=== PATIENT | female | born 1970 | race Caucasian/White ===

== ENCOUNTER 2018-08-14 12:04 | Emergency (ER) | payer BC ==
[2018-08-14] MEDS ORDERED: Sodium Chloride 0.9% 10 ML Syringe FLUSH PRN (12:57)
--- NOTE | 2018-08-14 13:11 | EDM.PDOC ---
<Cynthia Selby - Last Filed: 08/14/18 13:52> ED HPI GENERAL MEDICAL PROBLEM - General Chief Complaint: Chest Pain Stated Complaint: CHEST PAIN/L ARM PAIN Time Seen by Provider: 08/14/18 12:40 Source of Information: Reports: Patient, RN Notes Reviewed History Limitations: Reports: No Limitations - History of Present Illness INITIAL COMMENTS - FREE TEXT/NARRATIVE: Jahaira is a 48 year old female who presents to the ED for evaluation of some chest discomfort that occurred about two hours ago. Patient states that she has had some long standing left scapula and left trapezius pain which she has treated with massage therapy. 3 days ago, the pain worsened and radiated to her left TMJ. She thought she might have some dental pain, but it subsided on its own. Today while sitting at work, she developed some substernal/left chest discomfort. She describes that it felt like her heart was beating harder and faster. She said this was "weird". It lasted about two hours and subsided. She denied that exertion made this sensation worse. She denies any pain. She has no shortness or breath or diaphoresis.She currently does not have this chest discomfort. She also complains of some lightheadedness that occurs with walking. Patient has hypothyroidism that is treated with Levothyroxine 75 mcg. This was last checked by Dr. Fuchs in May and is stable. 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 She had a full hematology workup that included bone marrow biopsy about [address] Lewis. Blood counts are monitored periodically with Dr. Fuchs. Patient also had Novasure procedure about 6 years ago, and has not had a menstrual period since that time. She does not believe she has gone through menopause yet. Left Chest Pain Score (Numeric/FACES): 6 - Related Data Allergies Allergy/AdvReac Type Severity Reaction Status Date / Time SEASONAL Allergy Sneezing Uncoded 08/14/18 12:11 Home Meds: Home Meds Levothyroxine 75 mcg PO DAILY 08/14/18 [History] Past Medical History - Past Health History Medical/Surgical History: Denies Medical/Surgical History Endocrine/Metabolic History: Reports: Hyperthyroidism Social & Family History - Tobacco Use Smoking Status *Q: Never Smoker ED ROS GENERAL - Review of Systems Review Of Systems: See Below Constitutional: Reports: No Symptoms HEENT: Reports: No Symptoms Respiratory: Reports: No Symptoms. Denies: Shortness of Breath, Pleuritic Chest Pain, Cough Cardiovascular: Reports: Lightheadedness (with walking), Palpitations Endocrine: Reports: No Symptoms GI/Abdominal: Reports: No Symptoms : Reports: No Symptoms Musculoskeletal: Reports: Neck Pain (left), Shoulder Pain (left), Muscle Pain. Denies: Joint Pain, Joint Swelling Skin: Reports: No Symptoms Neurological: Reports: No Symptoms Psychiatric: Reports: No Symptoms Hematologic/Lymphatic: Reports: Other (low platelets) Immunologic: Reports: No Symptoms ED EXAM, GENERAL - Physical Exam Exam: See Below Exam Limited By: No Limitations General Appearance: Alert, WD/WN, No Apparent Distress Eye Exam: Bilateral Eye: EOMI, PERRL Ears: Hearing Grossly Normal Head: Atraumatic, Normocephalic Neck: Tender Lateral (left trapezius). No: Carotid Bruit, Lymphadenopathy (L), Lymphadenopathy (R), Tender Midline Respiratory/Chest: No Respiratory Distress, Lungs Clear, Normal Breath Sounds Cardiovascular: Normal Peripheral Pulses, Regular Rate, Rhythm, No Edema, No Gallop, No Murmur, No Rub Peripheral Pulses: 4+: Radial (L), Radial (R) GI/Abdominal: Normal Bowel Sounds, Soft, Non-Tender, No Mass Extremities: Normal Capillary Refill, Other (patient has pain on palpation to the left trapezius muscle from neck to shoulder. Tenderness on plapation to musculature of scalpula. No bony tenderness of the shoulder, clavicle, or scapula. Neers and Wong negative.). No: Joint Swelling, Increased Warmth, Redness Neurological: Alert, Oriented, CN II-XII Intact, Normal Cognition Psychiatric: Normal Affect, Normal Mood Skin Exam: Warm, Dry, Intact Course - Vital Signs Last Recorded V/S: Last Vital Signs Temp 98.5 F 08/14/18 12:11 Pulse 70 08/14/18 12:11 Resp 18 08/14/18 12:11 BP 127/73 08/14/18 12:11 Pulse Ox 98 08/14/18 12:11 - Orders/Labs/Meds Labs: Laboratory Tests 08/14/18 08/14/18 08/14/18 Range/Units 13:00 13:00 15:10 WBC 3.56 L (3.98-10.04) K/mm3 RBC 4.66 (3.98-5.22) M/mm3 Hgb 14.1 (11.2-15.7) gm/L Hct 40.7 (34.1-44.9) % MCV 87.3 (79.4-94.8) fl MCH 30.3 (25.6-32.2) pg MCHC 34.6 (32.2-35.5) g/dl RDW Std Deviation 41.6 (36.4-46.3) fL Plt Count 108 L (182-369) K/mm3 MPV 10.4 (9.4-12.3) fl Neut % (Auto) 57.8 (34.0-71.1) % Lymph % (Auto) 29.8 (19.3-51.7) % [place] % (Auto) 8.4 (4.7-12.5) % Eos % (Auto) 3.4 (0.7-5.8) Baso % (Auto) 0.3 (0.1-1.2) % Neut # (Auto) 2.06 (1.56-6.13) K/mm3 Lymph # (Auto) 1.06 L (1.18-3.74) K/mm3 [place] # (Auto) 0.30 (0.24-0.36) K/mm3 Eos # (Auto) 0.12 (0.04-0.36) K/mm3 Baso # (Auto) 0.01 (0.01-0.08) K/mm3 Sodium 141 (136-145) mEq/L Potassium 4.1 (3.5-5.1) mEq/L Chloride 104 (98-107) mEq/L Carbon Dioxide 28 (21-32) mEq/L Anion Gap 13.1 (5-15) BUN 17 (7-18) mg/dL Creatinine 0.8 (0.55-1.02) mg/dL Est Cr Clr Drug Dosing 70.37 mL/min Estimated GFR (MDRD) > 60 (>60) mL/min BUN/Creatinine Ratio 21.3 H (14-18) Glucose 97 (74-106) mg/dL Calcium 9.3 (8.5-10.1) mg/dL Magnesium 1.9 (1.8-2.4) mg/dl Total Bilirubin 0.5 (0.2-1.0) mg/dL AST 14 L (15-37) U/L ALT 22 (14-59) U/L Alkaline Phosphatase 44 L (46-116) U/L Troponin I < 0.017 < 0.017 (0.00-0.056) ng/mL Total Protein 7.5 (6.4-8.2) g/dl Albumin 4.3 (3.4-5.0) g/dl Globulin 3.2 gm/dL Albumin/Globulin Ratio 1.3 (1-2) TSH 3rd Generation 2.947 (0.358-3.74) uIU/mL Meds: Medications Discontinued Medications Generic Name Dose Route Start Last Admin Trade Name Freq PRN Reason Stop Dose Admin Sodium Chloride 10 ml 08/14/18 12:57 08/14/18 13:00 Saline Flush FLUSH 10 ml ASDIRECTED PRN Administration Keep Vein Open Departure - Departure Disposition: Home, Self-Care 01 Clinical Impression: Atypical chest pain Instructions: Nonspecific Chest Pain, [id number] Referrals: Ezio Cifuentes MD [Primary Care Provider] - Forms: ED Department Discharge Additional Instructions: OTC tylenol or motrin as needed for discomfort. Follow-up with your PCP within 2 weeks for a recheck of your symptoms. May require a cardiac stress test for further evaluation. Please return to ER should your symptoms change or worsen. <Jocelyn Connell - Last Filed: 08/16/18 13:17> ED HPI GENERAL MEDICAL PROBLEM - History of Present Illness INITIAL COMMENTS - FREE TEXT/NARRATIVE: I have seen the patient and agree with the HPI as documented by MIGUEL ANGEL Chu. EKG INTERPRETATION EKG Date: 08/14/18 Time: 12:15 Rhythm: NSR Rate (Beats/Min): 64 [place]: Normal P-Wave: Present QRS: Normal ST-T: Normal QT: Normal EKG Interpretation Comments: NSR at 64 bpm. No AVB. No AE. No ischemic changes. Normal transition. No LAD/ RAD. No LVH. No IVCD. QTc within normal limits with a QT of 444. Reviewed by myself and Dr. Montoya. Course - Radiology Interpretation Free Text/Narrative:: Chest: Two views of the chest were obtained. Comparison: No prior chest x-ray. Heart size and mediastinum are normal. Lungs are clear. Slight scoliosis is noted within the spine. Bony structures are otherwise unremarkable for the patient's age. Impression: 1. Nothing acute is seen on two-view chest x-ray. - Re-Assessments/Exams Free Text/Narrative Re-Assessment/Exam: 08/14/18 16:10 I have seen the patient and agree with the HPI, ROS and PE as documented by MIGUEL ANGEL Chu. Trop and repeat trop are WNL. Reviewed the labs, ekg and imaging with the patient. Does not appear to be cardiac in nature. Likely musculoskeletal in nature. Recommend follow-up with PCP. She has been pain free since entering the ER and has declined anything for pain. Will discharge home at this time. Discharge instructions as documented. Departure - Departure Time of Disposition: 16:10 Reason for Transfer *Q: Other Condition: Good
--- NOTE | 2018-08-14 14:02 | CR ---
Chest: Two views of the chest were obtained. Comparison: No prior chest x-ray. Heart size and mediastinum are normal. Lungs are clear. Slight scoliosis is noted within the spine. Bony structures are otherwise unremarkable for the patient's age. Impression: 1. Nothing acute is seen on two-view chest x-ray. Diagnostic code #1
== END 2018-08-14 16:11 | disposition home or self-care (01) ==
LOC: JD.ED 12:04
DX: R07.89 Other chest pain (principal); E05.90 Thyrotoxicosis, unspecified without thyrotoxic crisis or storm; Z79.899 Other long term (current) drug therapy
CPT/HCPCS: 36415; 71046; 71046-26; 80053; 83735; 84443; 84484; 85025; 93005; 99285-25